=== PATIENT | male | born 1980 | race Two or more races ===

== ENCOUNTER 2021-01-02 06:05 | Emergency (ER) | payer OTHER, SELFPAY ==
[2021-01-02 07:27] VITALS: BP 135/75; PULSE 71; RESP 16; TEMP 36.5; O2SAT 98; BMI 33.0
--- NOTE | 2021-01-02 08:17 | ED.SKABFB ---
HPI - Skin/Abscess/Foreign Bdy General Chief complaint: Skin/Abscess/Foreign Body Stated complaint: Lump Time Seen by Provider: 01/02/21 08:11 Source: patient Mode of arrival: ambulatory Limitations: no limitations History of Present Illness HPI narrative: Patient comes emergency room complaining of an abscess in his scalp. Started 2 days ago. Patient states that he has had the abscess intermittently in the same area for the last 1 year. Patient denies fever or chills. Patient states that he has been able to express pus from the abscess. Related Data Previous Rx's Medication Instructions Recorded cephalexin [Keflex] 750 mg PO BID #14 cap 01/02/21 doxycycline hyclate 100 mg PO BID #14 cap 01/02/21 Allergies Allergy/AdvReac Type Severity Reaction Status Date / Time aspirin Allergy Intermediate Unknown Verified 01/02/21 08:16 Review of Systems Review of Systems: Constitutional : No Weight loss, No Fever, No Chills, No Night Sweats, No Fatigue, No Malaise ENT/Mouth : No Hearing loss, No Ear Pain, No Nasal Congestion, No Sinus Pain, No Hoarseness, No sore throat, No Rhinorrhea, No Swallowing Difficulty Eyes: No Eye Pain, No Swelling, No Redness, No Foreign Body, No Discharge, No Vision Changes Cardiovascular : No Chest Pain, No SOB, No Dyspnea on Exertion, No Orthopnea, No Edema, No Palpitations Respiratory : No Cough, No Sputum, No Wheezing, No Smoke Exposure, No Dyspnea Gastrointestinal : No Nausea, No Vomiting, No Diarrhea, No Constipation, No abdominal Pain, No Hematochezia, No Melena Genitourinary : no irregular bleeding, No Dysuria, No Urinary Frequency, No Hematuria, No Urinary Incontinence, No Urgency, No Flank Pain, No Urinary Flow Changes, No Hesitancy Musculoskeletal : No joint pain, No Myalgias, No Joint Swelling Skin : Complaining of an abscess in his scalp on the right side Neuro : No Weakness, No Numbness, No Paresthesias, No Loss of Consciousness, No Dizziness, No Headache Psych : No Anxiety/Panic, No Depression, No SI/HI/AH/VH, No Social Issues, Heme/Lymph: No Bruising, No Bleeding,No Lymphadenopathy Endocrine : No Polyuria, No Polydipsia, No Temperature Intolerance PMFSH Past Medical History Medical History No known health problems Social History Social History Advance Directives: No Advance Directives Information Provided: No Physical Exam Vital Signs: Vital Signs: Last Vital Signs Temp 97.7 F 01/02/21 07:27 Pulse 71 01/02/21 07:27 Resp 16 01/02/21 07:27 BP 135/75 01/02/21 07:27 Pulse Ox 98 01/02/21 07:27 Body Mass Index 33.0 Appearance: Alert. Oriented X3. No acute distress. Eyes: Pupils equal, round and reactive to light. ENT: Pharynx normal. Neck: Normal inspection. Neck supple. No lymph nodes noted. No crepitus CVS: Normal heart rate and rhythm. Pulses normal. Normal S1 and S2 Respiratory: No respiratory distress. Breath sounds normal. No Wheezing. No rales Abdomen: Soft and nontender. No rigidity. No distention. good BS x4 Skin: Skin warm and dry. 2 cm x 2 cm abscess in the scalp on the right side, red, warm, tender to palpation, fluctuant. Extremities: No lower extremity edema. No lower extremity edema. No Lacerations. No Rash Neuro: Oriented X 3. No motor deficit. No sensory deficit. Moving all extermities. No slurred speech. Course Course Course Narrative: The abscess was infiltrated with 2% lidocaine, a large amount of pus was drained Procedures Abscess I/D Site: scalp Local Anesthetic: lidocaine 2% Amount of anesthesia used (mL): 3 Technique: incised with blade Amount of fluid expressed (mL): 7 Sent for culture/gram staining?: No Irrigation: No Packing used?: iodoform Discharge Plan Discharge Clinical Impression: Abscess of skin or subcutaneous tissue Qualifiers: Site of cutaneous abscess: head Qualified Code(s): L02.811 - Cutaneous abscess of head [any part, except face] Patient Disposition: Home, Self-Care Instructions: Abscess (ED) Additional Instructions: The packing is to be removed in 24 hours. It may be at urgent care, in the emergency room or with your primary care physician. Prescriptions: New cephalexin [Keflex] 750 mg capsule 750 mg PO BID Qty: 14 RF: 0 doxycycline hyclate 100 mg capsule 100 mg PO BID Qty: 14 RF: 0
[2021-01-02] MEDS: Lidocaine HCl 2 % MPF 5 ML VIAL INFILTRATI (09:41)
--- NOTE | 2021-01-02 09:44 | PC.NURSE ---
MD Ram at bedside to drain abcess
== END 2021-01-02 10:29 | disposition home or self-care (01) ==
PROVIDERS: Emergency Provider Emergency Medicine
DX: L02.811 Cutaneous abscess of head [any part, except face] (principal)
CPT/HCPCS: 10060; 99282; 99284

== ENCOUNTER 2021-01-03 08:45 | Emergency (ER) | payer OTHER, SELFPAY ==
[2021-01-03 09:02] VITALS: BP 133/83; PULSE 104; RESP 18; TEMP 36.5; O2SAT 98; BMI 33.0
--- NOTE | 2021-01-03 09:40 | ED.SKABFB ---
HPI - Skin/Abscess/Foreign Bdy General Chief complaint: Skin/Abscess/Foreign Body <ELIZABETH Ponce Last Filed: 01/03/21 10:03> Stated complaint: WOUND CHECK <ELIZABETH Ponce Last Filed: 01/03/21 10:03> Time Seen by Provider: 01/03/21 09:26 <ELIZABETH Ponce Last Filed: 01/03/21 10:03> Source: patient <ELIZABETH Ponce Last Filed: 01/03/21 10:03> Mode of arrival: ambulatory <ELIZABETH Ponce Last Filed: 01/03/21 10:03> Limitations: no limitations <ELIZABETH Ponce Last Filed: 01/03/21 10:03> History of Present Illness HPI narrative: 40-year-old male here for an abscess recheck. Patient was seen here yesterday an abscess the right side of his head which was drained. He was prescribed doxycycline and cephalexin. He denies any complaints. He is here for packing removal. He does tell me that he had some problems picking up his prescription and has not started his antibiotics <ELIZABETH Ponce Last Filed: 01/03/21 10:03> Related Data Home medications: Previous Rx's Medication Instructions Recorded cephalexin [Keflex] 750 mg PO BID #14 cap 01/02/21 doxycycline hyclate 100 mg PO BID #14 cap 01/02/21 cephalexin 500 mg PO BID #14 cap 01/03/21 <ELIZABETH Ponce Last Filed: 01/03/21 10:03> Allergies/Adverse reactions: Allergies Allergy/AdvReac Type Severity Reaction Status Date / Time aspirin Allergy Intermediate Unknown Verified 01/02/21 08:16 <ELIZABETH Ponce Last Filed: 01/03/21 10:03> Review of Systems Review of Systems: Yes all other systems are reviewed and are negative <ELIZABETH Ponce Last Filed: 01/03/21 10:03> Constitutional: Constitutional: Reports no additional constitutional complaints, Denies body ache(s), Denies chills, Denies fever(s), Denies headache(s) and Denies weakness <Bren Renee NP - Last Filed: 01/03/21 10:03> Eyes: Eyes: Reports no additional eye complaints and Denies change in vision <Bren Renee NP - Last Filed: 01/03/21 10:03> ENT: Reports system reviewed and no additional complaints, except as documented, Denies dizziness, Denies headache(s), Denies nasal congestion, Denies nasal discharge and Denies neck pain <Bren Renee NP - Last Filed: 01/03/21 10:03> Cardiovascular: Cardiovascular: Reports no additional cardiovascular complaints, Denies chest pain, Denies leg edema and Denies dyspnea <Bren Renee NP - Last Filed: 01/03/21 10:03> Respiratory: Respiratory: Reports no additional respiratory complaints, Denies cough and Denies dyspnea <Bren Renee NP - Last Filed: 01/03/21 10:03> Gastrointestinal: Gastrointestinal: Reports no additional gastrointestinal complaints, Denies abdominal pain, Denies diarrhea, Denies nausea and Denies vomiting <Bren Renee NP - Last Filed: 01/03/21 10:03> Genitourinary: Genitourinary: Denies urinary incontinence <Bren Renee NP - Last Filed: 01/03/21 10:03> Musculoskeletal: Musculoskeletal: Reports no additional musculoskeletal complaints, Denies back pain, Denies arthralgias, Denies joint swelling, Denies neck pain, Denies numbness and Denies tingling <Bren Renee NP - Last Filed: 01/03/21 10:03> Integumentary/Breasts: Skin/Breast: Reports system reviewed and no additional complaints, except as docu and Denies rash <Bren Renee NP - Last Filed: 01/03/21 10:03> Neurologic: Reports system reviewed and no additional complaints, except as documented, Denies Abnormal speech present, Denies dizziness, Denies headache(s), Denies numbness, Denies tingling and Denies weakness <Bren Renee NP - Last Filed: 01/03/21 10:03> [facility] Past Medical History Attestation statement: The following information was validated with the patient. <Bren Renee NP - Last Filed: 01/03/21 10:03> Source: old records reviewed and nursing notes reviewed <Bren Renee NP - Last Filed: 01/03/21 10:03> Medical History: Medical History No known health problems <Bren Renee NP - Last Filed: 01/03/21 10:03> Social History Social History: Social History Advance Directives: Yes Advance Directives Information Provided: Yes Advance Directives on File: No <Bren Renee NP - Last Filed: 01/03/21 10:03> Physical Exam Vital Signs: Vital Signs: Last Vital Signs Temp 97.7 F 01/03/21 09:02 Pulse 104 H 01/03/21 09:02 Resp 18 01/03/21 09:02 BP 133/83 01/03/21 09:02 Pulse Ox 98 01/03/21 09:02 Body Mass Index 33.0 <Bren Renee NP - Last Filed: 01/03/21 10:03> Vital Signs: Last Vital Signs Temp 97.7 F 01/03/21 09:02 Pulse 104 H 01/03/21 09:02 Resp 18 01/03/21 09:02 BP 133/83 01/03/21 09:02 Pulse Ox 98 01/03/21 09:02 Body Mass Index 33.0 <Torin Madden MD - Last Filed: 01/26/21 15:07> Const: General: cooperative, healthy appearing, comfortable and no acute distress <Bren Renee NP - Last Filed: 01/03/21 10:03> Orientation/consciousness: patient oriented x3 <Bren Renee NP - Last Filed: 01/03/21 10:03> Limitations: no limitations <Bren Renee NP - Last Filed: 01/03/21 10:03> HENMT: Other: To the right-sided head there is a small local area of redness and swelling with packing present. There is no fluctuance or induration <Bren Renee NP - Last Filed: 01/03/21 10:03> Head: Yes normal to inspection <Bren Renee NP - Last Filed: 01/03/21 10:03> Ears: hearing grossly normal bilaterally <Bren Renee NP - Last Filed: 01/03/21 10:03> General nose exam: Normal external nose present <Bren Renee NP - Last Filed: 01/03/21 10:03> Face and sinus: Yes normal facial exam <Bren Renee NP - Last Filed: 01/03/21 10:03> Mouth: Normal oral and palatal mucosa present <Bren Renee NP - Last Filed: 01/03/21 10:03> Throat: Yes posterior oropharynx normal <Bren Renee NP - Last Filed: 01/03/21 10:03> Eyes: General: appearance normal, both eyes and all related structures <Bren Renee NP - Last Filed: 01/03/21 10:03> Pupils: Equal, round and reactive pupils present <Bren Renee NP - Last Filed: 01/03/21 10:03> Neck: Neck: Yes normal visual inspection <Bren Renee NP - Last Filed: 01/03/21 10:03> Chest: Chest palpation & inspection: normal inspection of the chest <Bren Renee NP - Last Filed: 01/03/21 10:03> Resp: Effort & Inspection: normal respiratory effort <Bren Renee NP - Last Filed: 01/03/21 10:03> Auscultation: clear to auscultation bilaterally <Bren Renee NP - Last Filed: 01/03/21 10:03> Cardio: Rate: regular rate <Bren Renee NP - Last Filed: 01/03/21 10:03> Rhythm: regular rhythm <Bren Renee NP - Last Filed: 01/03/21 10:03> Peripheral pulses: Peripheral pulses 2+ throughout <Bren Renee NP - Last Filed: 01/03/21 10:03> GI: Inspection: Yes normal to inspection <Bren Renee NP - Last Filed: 01/03/21 10:03> Palpation (GI): Soft to palpation and nontender <Bren Renee NP - Last Filed: 01/03/21 10:03> Auscultation: normal bowel sounds <Bren Renee NP - Last Filed: 01/03/21 10:03> Back/Spine/Pelvis: Thoracic/Lumbar Spine: thoracic and lumbar spine normal to inspection <Bren Renee NP - Last Filed: 01/03/21 10:03> Skin: General skin exam: no rashes or lesions noted <Bren Renee NP - Last Filed: 01/03/21 10:03> Neuro: General: patient oriented x3, no focal motor deficits and normal sensation to monofilament <Bren Renee NP - Last Filed: 01/03/21 10:03> Cranial nerves: Yes Equal, round and reactive pupils present <Bren Renee NP - Last Filed: 01/03/21 10:03> Cognition (Neuro): normal cognition <Bren Renee NP - Last Filed: 01/03/21 10:03> Speech: No Abnormal speech present <Bren Renee NP - Last Filed: 01/03/21 10:03> Gait exam (Neuro): Normal gait present <Bren Renee NP - Last Filed: 01/03/21 10:03> Motor exam (neuro): 5/5 motor strength present throughout <Bren Renee NP - Last Filed: 01/03/21 10:03> Extrem: General: Yes normal to inspection <Bren Renee NP - Last Filed: 01/03/21 10:03> Course Course Course Narrative: Packing removed from right sided abscess. No issues or complications. Wound care provided. Patient told me he had problems picking up his prescription at the pharmacy. I did call [facility] some oral driving [place]. His insurance was not going to cover the dose of cephalexin so we changed this. Patient was informed of the change. Reviewed worrisome signs and symptoms and when to return to the emergency department. Comfortable discharge home. <Bren Renee NP - Last Filed: 01/03/21 10:03> I have reviewed the chart <Torin Madden MD - Last Filed: 01/26/21 15:07> Discharge Plan Discharge Clinical Impression: Abscess re-check <Bren Renee NP - Last Filed: 01/03/21 10:03> Patient Disposition: Home, Self-Care <Bren Renee NP - Last Filed: 01/03/21 10:03> Instructions: Abscess Follow-up (ED) <Bren Renee NP - Last Filed: 01/03/21 10:03> Additional Instructions: Your prescriptions are ready for you at [facility]. I did call to confirm Wash the site with soap and water daily. A pat dry and then apply a Band-Aid <Bren Renee NP - Last Filed: 01/03/21 10:03> Prescriptions: New cephalexin 500 mg capsule 500 mg PO BID Qty: 14 RF: 0 No Action cephalexin [Keflex] 750 mg capsule 750 mg PO BID Qty: 14 RF: 0 doxycycline hyclate 100 mg capsule 100 mg PO BID Qty: 14 RF: 0 <Bren Renee NP - Last Filed: 01/03/21 10:03> Referrals: Physician,Unknown [Primary Care Provider] - 2 days <Bren Renee NP - Last Filed: 01/03/21 10:03> Interventions: ED Discharge Assessment Last Done: 01/03/21 09:51 <Bren Renee NP - Last Filed: 01/03/21 10:03> Discharge Date/Time: 01/03/21 09:52 <Bren Renee NP - Last Filed: 01/03/21 10:03>
== END 2021-01-03 09:52 | disposition home or self-care (01) ==
PROVIDERS: Emergency Provider Emergency Medicine
DX: L02.811 Cutaneous abscess of head [any part, except face] (principal); Z79.899 Other long term (current) drug therapy
CPT/HCPCS: 99283